=== PATIENT | male | born 1960 | race Caucasian/White ===

== ENCOUNTER 2022-09-20 12:03 | Emergency (ER) | payer OTHER ==
[~2022-09-20] VITALS: Ht 182.9 cm; Wt 97.5 kg
[2022-09-20] MEDS ORDERED: NAPR375T5 PO (12:35)
[2022-09-20] MEDS ORDERED: TAMS1CAP17 PO (12:35)
[2022-09-20] MEDS ORDERED: LIDOCAINE 5% (LIDODERM) PATCH TD ONE (15:20)
[2022-09-20] MEDS ORDERED: methylPREDNISolone 125MG 2ML VIAL IV ONE (15:20)
[2022-09-20] MEDS ORDERED: KETOROLAC 60MG 2ML VIAL IM ONE (15:20)
[2022-09-20] MEDS ORDERED: methocarbamoL 750 MG TAB PO ONE (15:20)
[2022-09-20] MEDS ORDERED: ASPE4PAD TOP (15:59)
[2022-09-20] MEDS ORDERED: MEDR4PAK PO (15:59)
[2022-09-20] MEDS ORDERED: NAPR-837 PO (15:59)
[2022-09-20] MEDS ORDERED: METH-1165 PO (15:59)
[2022-09-20 16:06] VITALS: BP 136/100; TEMP 97.4; O2SAT 96
== END 2022-09-20 16:09 | disposition home or self-care (01) ==
LOC: M ED 12:03
DX: M54.50 Low back pain, unspecified (principal); Z79.899 Other long term (current) drug therapy
CPT/HCPCS: 96372; 96374; 99283; J1885; J2930